=== PATIENT | male | born 1985 | race American Indian/Alaskan Native ===

== ENCOUNTER 2018-10-14 17:14 | Emergency (ER) | payer OTHER ==
[2018-10-14 17:52] VITALS: BP 148/95
[2018-10-14 19:51] LABS: ANION GAP 13.7; CHLORIDE,CL 102 mmol/L (101-111); SODIUM,NA 136 mmol/L (135-145)
--- NOTE | 2018-10-14 21:06 | EDM.PDOC ---
ED HPI GENERAL MEDICAL PROBLEM - General Chief Complaint: Abdominal Pain Stated Complaint: LINGERING SIDE ACHE Time Seen by Provider: 10/14/18 19:30 Source of Information: Reports: Patient History Limitations: Reports: No Limitations - History of Present Illness INITIAL COMMENTS - FREE TEXT/NARRATIVE: ED with c/o intermittent low abdominal pain and low back pain, concern if urinary infection. Recent hx prostatitis and onset similar last time. No urinary symptoms with this. No fever or chills. Stated was visiting someone in hospital so thought would get checked. Stated completed 6 week course of antibiotic that was prescribed. No pain at present Bilateral Abdomen Pain Score (Numeric/FACES): 3 - Related Data Allergies Allergy/AdvReac Type Severity Reaction Status Date / Time No Known Allergies Allergy Verified 10/14/18 17:52 Home Meds: Home Meds . [No Known Home Meds] 03/26/14 [History] Past Medical History - Past Health History Medical/Surgical History: Denies Medical/Surgical History HEENT History: Reports: Other (See Below) Other HEENT History: hx fx left eye Cardiovascular History: Reports: None Respiratory History: Reports: None Gastrointestinal History: Reports: None Genitourinary History: Reports: STD, Other (See Below) Other Genitourinary History: prostatitis Musculoskeletal History: Reports: Back Pain, Chronic Neurological History: Reports: None Psychiatric History: Reports: None Endocrine/Metabolic History: Reports: None Hematologic History: Reports: None Immunologic History: Reports: None Oncologic (Cancer) History: Reports: None Dermatologic History: Reports: None - Infectious Disease History Infectious Disease History: Reports: None - Past Surgical History Head Surgeries/Procedures: Reports: None Social & Family History - Family History Family Medical History: Noncontributory - Tobacco Use Smoking Status *Q: Current Every Day Smoker Years of Tobacco use: 10 Packs/Tins Daily: 0 Used Tobacco, but Quit: Yes Month/Year Tobacco Last Used: - Caffeine Use Caffeine Use: Reports: Coffee, Soda - Recreational Drug Use Recreational Drug Use: No - Living Situation & Occupation Living situation: Reports: with Family ED ROS GENERAL - Review of Systems Review Of Systems: ROS reveals no pertinent complaints other than HPI. ED EXAM, RENAL/ - Physical Exam Exam: See Below Exam Limited By: No Limitations General Appearance: Alert, No Apparent Distress Ears: Normal External Exam Nose: Normal Inspection Throat/Mouth: Normal Inspection, Normal Lips Head: Atraumatic, Normocephalic Neck: Normal Inspection Respiratory/Chest: No Respiratory Distress, Lungs Clear Cardiovascular: Normal Peripheral Pulses, Regular Rate, Rhythm GI/Abdominal: Normal Bowel Sounds, Soft, Non-Tender Back Exam: Normal Inspection, Full Range of Motion. No: CVA Tenderness (L), CVA Tenderness (R), Paraspinal Tenderness, Vertebral Tenderness Extremities: Normal Inspection Neurological: Alert, Oriented Psychiatric: Normal Affect, Normal Mood Skin Exam: Warm, Dry, Intact, Normal Color Course - Vital Signs Last Recorded V/S: Last Vital Signs Temp 99.2 F 10/14/18 17:51 Pulse 89 10/14/18 17:51 Resp 20 10/14/18 17:51 BP 148/95 H 10/14/18 17:51 Pulse Ox 97 10/14/18 17:51 - Orders/Labs/Meds Labs: Laboratory Tests 10/14/18 10/14/18 10/14/18 Range/Units 18:00 19:26 19:26 WBC 10.3 H (5.0-10.0) 10^3/uL RBC 5.76 (4.6-6.2) 10^6/uL Hgb 17.5 (14.0-18.0) g/dL Hct 51.0 (40.0-54.0) % MCV 88.5 (80-100) fL MCH 30.4 (27.0-34.0) pg MCHC 34.3 (33.0-35.0) g/dL Plt Count 319 (150-450) 10^3/uL Neut % (Auto) 72.4 (42.2-75.2) % Lymph % (Auto) 15.9 L (20.5-50.1) % Ashe % (Auto) 9.2 H (2-8) % Eos % (Auto) 2.3 (1.0-3.0) % Baso % (Auto) 0.2 (0.0-1.0) % Sodium 136 (135-145) mmol/L Potassium 3.7 (3.6-5.0) mmol/L Chloride 102 (101-111) mmol/L Carbon Dioxide 24.0 (21.0-31.0) mmol/L Anion Gap 13.7 BUN 13 (7-18) mg/dL Creatinine 0.9 (0.6-1.3) mg/dL Est Cr Clr Drug Dosing 131.93 mL/min Estimated GFR (MDRD) > 60 BUN/Creatinine Ratio 14.44 Glucose 108 H (74-105) mg/dL Lactic Acid (0.5-2.2) mmol/L Calcium 9.0 (8.4-10.2) mg/dl Total Bilirubin 1.5 H (0.2-1.0) mg/dL AST 32 (10-42) IU/L ALT 58 (10-60) IU/L Alkaline Phosphatase 77 (42-121) IU/L Total Protein 7.6 (6.7-8.2) g/dl Albumin 4.4 (3.2-5.5) g/dl Globulin 3.2 Albumin/Globulin Ratio 1.38 Urine Color Yellow (YELLOW) Urine Appearance Clear (CLEAR) Urine pH 5.5 (5.0-9.0) Ur Specific Pinch 1.025 (1.005-1.030) Urine Protein Negative (NEGATIVE) Urine Glucose (UA) Negative (NEGATIVE) Urine Ketones Negative (NEGATIVE) Urine Occult Blood Negative (NEGATIVE) Urine Nitrite Negative (NEGATIVE) Urine Bilirubin Negative (NEGATIVE) Urine Urobilinogen 0.2 (0.2-1.0) mg/dL Ur Leukocyte Esterase Negative (NEGATIVE) 10/14/18 Range/Units 19:26 WBC (5.0-10.0) 10^3/uL RBC (4.6-6.2) 10^6/uL Hgb (14.0-18.0) g/dL Hct (40.0-54.0) % MCV (80-100) fL MCH (27.0-34.0) pg MCHC (33.0-35.0) g/dL Plt Count (150-450) 10^3/uL Neut % (Auto) (42.2-75.2) % Lymph % (Auto) (20.5-50.1) % Ashe % (Auto) (2-8) % Eos % (Auto) (1.0-3.0) % Baso % (Auto) (0.0-1.0) % Sodium (135-145) mmol/L Potassium (3.6-5.0) mmol/L Chloride (101-111) mmol/L Carbon Dioxide (21.0-31.0) mmol/L Anion Gap BUN (7-18) mg/dL Creatinine (0.6-1.3) mg/dL Est Cr Clr Drug Dosing mL/min Estimated GFR (MDRD) BUN/Creatinine Ratio Glucose (74-105) mg/dL Lactic Acid 0.8 (0.5-2.2) mmol/L Calcium (8.4-10.2) mg/dl Total Bilirubin (0.2-1.0) mg/dL AST (10-42) IU/L ALT (10-60) IU/L Alkaline Phosphatase (42-121) IU/L Total Protein (6.7-8.2) g/dl Albumin (3.2-5.5) g/dl Globulin Albumin/Globulin Ratio Urine Color (YELLOW) Urine Appearance (CLEAR) Urine pH (5.0-9.0) Ur Specific Pinch (1.005-1.030) Urine Protein (NEGATIVE) Urine Glucose (UA) (NEGATIVE) Urine Ketones (NEGATIVE) Urine Occult Blood (NEGATIVE) Urine Nitrite (NEGATIVE) Urine Bilirubin (NEGATIVE) Urine Urobilinogen (0.2-1.0) mg/dL Ur Leukocyte Esterase (NEGATIVE) Departure - Departure Time of Disposition: 21:02 Disposition: Home, Self-Care 01 Condition: Good Clinical Impression: Intermittent low back pain - Discharge Information *PRESCRIPTION DRUG MONITORING PROGRAM REVIEWED*: No *COPY OF PRESCRIPTION DRUG MONITORING REPORT IN PATIENT MERE: Not Applicable Instructions: Prostatitis, [id number] Referrals: PCP,None [Primary Care Provider] - Forms: ED Department Discharge Additional Instructions: increase fluids follow up if low abdominal pain fever , increased frequency of urinating
== END 2018-10-14 21:12 | disposition home or self-care (01) ==
LOC: DL.ED 17:14
DX: M54.5 Low back pain (principal); R10.30 Lower abdominal pain, unspecified; F17.210 Nicotine dependence, cigarettes, uncomplicated
CPT/HCPCS: 36415; 80053; 81003; 83605; 85025; 99284

== ENCOUNTER 2024-01-12 17:47 | Emergency (ER) | payer OTHER ==
[2024-01-12] MEDS ORDERED: Sodium Chloride 0.9% 10 ML Syringe FLUSH PRN (18:04)
[2024-01-12 18:11] LABS: BASOPHILS PERCENT AUTO 0.2 % (0.0-1.0); EOSINOPHILS PERCENT AUTO 4.2 % (1.0-3.0); HEMATOCRIT 47.7 % (40.0-54.0); HEMOGLOBIN 16.2 g/dL (14.0-18.0); LYMPHOCYTES PERCENT AUTO 19.1 % (20.5-50.1); MEAN CORPUSCULAR HEMOGLOBIN 29.8 pg (27.0-34.0); MEAN CORPUSCULAR VOLUME 87.7 fL (80-100); MONOCYTES PERCENT AUTO 8.9 % (2-8); NEUTROPHILS PERCENT AUTO 67.6 % (42.2-75.2); PLATELET COUNT,PLT 335 10^3/uL (150-450); RED BLOOD CELL COUNT 5.44 10^6/uL (4.6-6.2); WHITE BLOOD CELL COUNT,WBC 8.1 10^3/uL (5.0-10.0)
[2024-01-12 18:33] LABS: PROTHROMBIN TIME 10.4 SEC (9.0-12.0)
[2024-01-12 18:39] LABS: A/G RATIO 1.3; ALBUMIN 4.1 g/dL (3.4-5.0); ANION GAP 11.3 mEq/L (7-13); BILIRUBIN TOTAL 0.8 mg/dL (0.2-1.0); BUN/CREATININE RATIO 14.8 (No establ ref range); CREATININE 1.15 mg/dL (0.70-1.30); EST CRCL DRUG DOSING (CG) 98.43 mL/min; MAGNESIUM 1.9 mg/dL (1.8-2.4); POTASSIUM,K 3.3 mmol/L (3.5-5.1); PROTEIN TOTAL,TP 7.2 g/dL (6.4-8.2); TSH ULTRASENSITIVE 0.38 uIU/mL (0.36-3.74)
[2024-01-12] MEDS: GI Cocktail Oral Solution 30 ML PO ONE (18:48)
[2024-01-12] MEDS: Potassium Chloride 10 MEQ Tab.ER PO ONE (19:02)
[2024-01-12 20:45] VITALS: BP 136/88; PULSE 60
== END 2024-01-12 20:50 | disposition home or self-care (01) ==
LOC: DL.ED 17:47
DX: R07.89 Other chest pain (principal)
CPT/HCPCS: 36415; 71045; 80053; 83735; 84443; 84484; 85025; 85610; 85730; 93005; 99285; A9270; 93010; 99284

== ENCOUNTER 2025-03-21 18:54 | Emergency (ER) | payer OTHER, BC ==
[2025-03-21] MEDS: Lidocaine 2% Viscous Solution 15 ML UD PO ONE (19:18)
[2025-03-21 20:31] VITALS: BP 142/78; PULSE 88
== END 2025-03-21 20:01 | disposition home or self-care (01) ==
LOC: DL.ED 18:54
DX: S01.511A Laceration without foreign body of lip, initial encounter (principal); X58.XXXA Exposure to other specified factors, initial encounter; Y99.0 Civilian activity done for income or pay
CPT/HCPCS: 12011; 99282; J3490; A9270-GY